=== PATIENT | female | born 1935 | race Caucasian/White ===

== ENCOUNTER → 2017-02-20 | Outpatient (REF) | payer MEDICARE, OTHER ==
[~2017-02-20] MED LIST: /MELO7TA PO; ACET50TA PO; ATARAX PO; BACITAB PO; CALCTAB68 PO; CARA1TAB6 PO; CIPR-249 PO; ENTO3CAP5 PO; FISH1200 PO; FLAG500T PO; GLUC1500 PO; LOSA100T PO; LUTE6TAB2 PO; MULTIVITAMIN PO; PROAAER10 IN; PROT1TAB2 PO; PROTPAK PO; QUES4POW PO; VITA200015 PO
[2017-02-20 12:39] LABS: MEAN CORPUSCULAR HEMOGLOBIN 32.4 pg (27.0-33.0); MEAN CORPUSCULAR HGB CONC 33.1 g/dl (32.0-36.5); RED CELL DISTRIBUTION WIDTH 12.7 % (11.5-14.5); WHITE BLOOD COUNT 4.6 K/mm3 (4.0-10.0)
[2017-02-20 13:01] LABS: ANION GAP 8 MEQ/L (8-16); BLOOD UREA NITROGEN 24 MG/DL (7-18); CALCIUM LEVEL 9.3 MG/DL (8.8-10.2); CARBON DIOXIDE LEVEL 29 MEQ/L (21-32); CHLORIDE LEVEL 105 MEQ/L (98-107); CREATININE FOR GFR 0.78 MG/DL (0.55-1.02); GLOMERULAR FILTRATION RATE > 60.0 (>39); GLUCOSE, FASTING 91 MG/DL (83-110); POTASSIUM SERUM 3.7 MEQ/L (3.5-5.1); SODIUM LEVEL 142 MEQ/L (136-145)
== END ==
LOC: M SFHCADAM 07:50
PROVIDERS: ATTEND Urology
DX: Z90.5 Acquired absence of kidney (principal)

== ENCOUNTER → 2017-03-02 | Outpatient (CLI) | payer MEDICARE, OTHER ==
[~2017-03-02] MED LIST changes: +ISOVUE-370 76% 100ML VIAL (Q9967) As Ordered ONE
--- NOTE | 2017-03-02 11:58 | REP ---
REASON: History of renal neoplasm. COMPARISON: Multiple, the latest 01/03/2014. CONTRAST: 100 mL Isovue 370. The precontrast enhanced portion of the examination shows the hepatic and splenic densities to be within normal limits. There are surgical clips in the gallbladder fossa from previous cholecystectomy, status quo. There are no nephroliths. Contrast enhanced portion of the examination shows stable cyst in the lateral segment of the left lobe of the liver. There are no enhancing hepatic lesions. The spleen, pancreas, adrenal glands, and kidneys are unchanged. Note is again made of stable pancreatic cysts and an unchanged 2.5 cm sized left renal lesion. The abdominal aorta and para-aortic regions are within normal limits. There is no free fluid or free air in the abdomen. The bowel loops and their mesenteries are within normal limits. CT PELVIS: There is no free fluid or free air. There is no mass or adenopathy. The bowel loops and their mesenteries are within normal limits. Bone window technique throughout the exam shows no significant change in the osseous structures. IMPRESSION: Stable CT examination of the abdomen and pelvis with findings as described above. Signed by Yoseph Vera DO 03/02/2017 01:57 P
== END ==
LOC: M RAD 10:25
PROVIDERS: ATTEND Urology
DX: Z90.5 Acquired absence of kidney (principal)
CPT/HCPCS: 74178; Q9967

== ENCOUNTER → 2017-06-25 | Outpatient (REF) | payer MEDICARE, OTHER ==
[~2017-06-25] MED LIST changes: -ISOVUE-370 76% 100ML VIAL (Q9967) As Ordered ONE
== END ==
LOC: M LABDRWAD 12:14
PROVIDERS: ATTEND Internal Medicine Cardiovascular Disease
DX: E78.2 Mixed hyperlipidemia (principal); I10 Essential (primary) hypertension; I35.0 Nonrheumatic aortic (valve) stenosis

== ENCOUNTER → 2017-09-20 | Outpatient (REF) | payer MEDICARE, OTHER ==
[2017-09-20 12:45] LABS: HEMATOCRIT 35.9 % (36.0-47.0); HEMOGLOBIN 11.6 g/dl (12.0-16.0); MEAN CORPUSCULAR HEMOGLOBIN 31.7 pg (27.0-33.0); MEAN CORPUSCULAR HGB CONC 32.3 g/dl (32.0-36.5); MEAN CORPUSCULAR VOLUME 98.1 fl (80.0-96.0); PLATELET COUNT, AUTOMATED 147 10^3/uL (150-450); RED BLOOD COUNT 3.66 10^6/uL (4.00-5.40); WHITE BLOOD COUNT 3.7 10^3/uL (4.0-10.0)
[2017-09-20 12:47] LABS: APPEARANCE, URINE CLEAR (CLEAR); BACTERIA, URINE AUTO NEGATIVE (NEGATIVE); BILIRUBIN, URINE AUTO NEGATIVE (NEGATIVE); BLOOD, URINE BLOOD NEGATIVE (NEGATIVE); COLOR, URINE YELLOW (YELLOW); GLUCOSE, URINE (UA) AUTO NEGATIVE (NEGATIVE); KETONE, URINE AUTO NEGATIVE (NEGATIVE); LEUKOCYTE ESTERASE, URINE AUTO NEGATIVE (NEGATIVE); NITRITE, URINE AUTO NEGATIVE (NEGATIVE); PROTEIN, URINE AUTO NEGATIVE (NEGATIVE); RBC, URINE AUTO 0 /HPF (0-3); SPECIFIC GRAVITY URINE AUTO 1.008 (1.002-1.035); SQUAMOUS EPITHELIAL CELL UR AU 0 /HPF (0-6); UROBILINOGEN, URINE AUTO 0.2 mg/dL (0.0-2.0); WBC, URINE AUTO 0 /HPF (0-3)
[2017-09-20 12:57] LABS: ANION GAP 6 MEQ/L (8-16); BLOOD UREA NITROGEN 24 MG/DL (7-18); CALCIUM LEVEL 9.2 MG/DL (8.8-10.2); CARBON DIOXIDE LEVEL 31 MEQ/L (21-32); CHLORIDE LEVEL 104 MEQ/L (98-107); CREATININE FOR GFR 0.71 MG/DL (0.55-1.30); GLOMERULAR FILTRATION RATE > 60.0 (>39); GLUCOSE, FASTING 91 MG/DL (70-100); SODIUM LEVEL 141 MEQ/L (136-145)
== END ==
LOC: M SFHCADAM 10:28
DX: Z85.528 Personal history of other malignant neoplasm of kidney (principal); Z79.899 Other long term (current) drug therapy
CPT/HCPCS: 80048

== ENCOUNTER → 2017-11-09 | Outpatient (REF) | payer MEDICARE, OTHER ==
[2017-11-09 13:50] LABS: FERRITIN 157 NG/ML (8-252); IRON (FE) 85 UG/DL (50-170); PERCENT SATURATION 27.2 % (13.2-45.0); TOTAL IRON BINDING CAPACITY 312 UG/DL (250-450)
[2017-11-09 14:14] LABS: VITAMIN B12 LEVEL 275 PG/ML (247-911)
== END ==
LOC: M LAB REF 12:49
DX: D64.9 Anemia, unspecified (principal)
CPT/HCPCS: 83550

== ENCOUNTER → 2018-03-27 | Outpatient (REF) | payer MEDICARE, OTHER ==
[2018-03-27 12:56] LABS: HEMATOCRIT 36.8 % (36.0-47.0); HEMOGLOBIN 12.1 g/dl (12.0-15.5); MEAN CORPUSCULAR HEMOGLOBIN 32.3 pg (27.0-33.0); MEAN CORPUSCULAR HGB CONC 32.9 g/dl (32.0-36.5); MEAN CORPUSCULAR VOLUME 98.1 fl (80.0-96.0); PLATELET COUNT, AUTOMATED 175 10^3/uL (150-450); RED BLOOD COUNT 3.75 10^6/uL (4.00-5.40); RED CELL DISTRIBUTION WIDTH 12.9 % (11.5-14.5); WHITE BLOOD COUNT 5.3 10^3/uL (4.0-10.0)
[2018-03-27 14:40] LABS: ANION GAP 9 MEQ/L (8-16); BLOOD UREA NITROGEN 23 MG/DL (7-18); CALCIUM LEVEL 9.4 MG/DL (8.8-10.2); CARBON DIOXIDE LEVEL 27 MEQ/L (21-32); CHLORIDE LEVEL 106 MEQ/L (98-107); CREATININE FOR GFR 0.73 MG/DL (0.55-1.30); GLOMERULAR FILTRATION RATE > 60.0 (>32); GLUCOSE, FASTING 85 MG/DL (70-100); POTASSIUM SERUM 4.6 MEQ/L (3.5-5.1); SODIUM LEVEL 142 MEQ/L (136-145)
== END ==
LOC: M SFHCADAM 08:29
DX: D30.02 Benign neoplasm of left kidney (principal)

== ENCOUNTER → 2018-03-27 | Outpatient (CLI) | payer MEDICARE, OTHER | LOC: M ADAMS 08:31 | DX: D30.02 Benign neoplasm of left kidney (principal) | CPT/HCPCS: 80048 ==

== ENCOUNTER → 2019-02-04 | Outpatient (REF) | payer MEDICARE, OTHER ==
[~2019-02-04] MED LIST changes: -/MELO7TA PO; -ACET50TA PO; +MAPA500T17 PO; +MOBI4TAB PO
[2019-02-04 14:10] LABS: HEMATOCRIT 39.2 % (36.0-47.0); HEMOGLOBIN 12.7 g/dl (12.0-15.5); MEAN CORPUSCULAR HEMOGLOBIN 33.2 pg (27.0-33.0); MEAN CORPUSCULAR HGB CONC 32.4 g/dl (32.0-36.5); MEAN CORPUSCULAR VOLUME 102.3 fl (80.0-96.0); PLATELET COUNT, AUTOMATED 174 10^3/uL (150-450); RED BLOOD COUNT 3.83 10^6/uL (4.00-5.40); WHITE BLOOD COUNT 5.3 10^3/uL (4.0-10.0)
[2019-02-04 14:45] LABS: BLOOD UREA NITROGEN 29 MG/DL (7-18); CALCIUM LEVEL 9.1 MG/DL (8.8-10.2); CARBON DIOXIDE LEVEL 30 MEQ/L (21-32); CHLORIDE LEVEL 104 MEQ/L (98-107); CREATININE FOR GFR 0.82 MG/DL (0.55-1.30); GLOMERULAR FILTRATION RATE > 60.0 (>32); GLUCOSE, FASTING 91 MG/DL (70-100); POTASSIUM SERUM 4.3 MEQ/L (3.5-5.1); SODIUM LEVEL 140 MEQ/L (136-145)
== END ==
LOC: M LABDRWAD 13:15
PROVIDERS: ATTEND Physician Assistant Medical
DX: I34.0 Nonrheumatic mitral (valve) insufficiency (principal)

== ENCOUNTER → 2019-08-03 | Outpatient (CLI) | payer MEDICARE, OTHER ==
--- NOTE | 2019-08-05 08:01 | SLEEPCENT ---
DATE OF STUDY: 08/03/2019 ORDERED BY: Dr. Musa Nocturnal polysomnography was performed for evaluation of sleep physiology in this patient with excessive somnolence and snoring. 8 hours and 44 minutes of data were reviewed. There were 416.5 minutes of sleep identified. Sleep latency was prolonged at 39.5 minutes. Rapid eye movement (REM) latency was prolonged at 235 minutes. Sleep architecture showed fragmentation and poor progression. Overall sleep efficiency was 80.3%, but REM time was significantly reduced. The electrocardiogram showed a sinus rhythm with an average heart rate of 60 beats per minute. Electroencephalogram (EEG) showed normal waveforms for awake and sleep. There were 199 respiratory events identified of 10 seconds in duration or greater for an apnea-hypopnea index of 28.7. The events were primarily obstructive, not exclusive to sleep stage nor body posture. Arousals from respiratory events occurred 4.5 times per hour and oxygen desaturations were seen into the 70s. There was minimal activity in the limb leads and remaining measures of sleep physiology were normal. IMPRESSION: Obstructive sleep apnea syndrome (G47.33). Apnea-hypopnea index 28.7. RECOMMENDATION: The patient should be encouraged to return to the sleep disorder center for institution of pressure therapy. In the interim, alcohol and sedative avoidance should be practiced and caution exercised during the operation of motor vehicles.
== END ==
LOC: M SLEEP 20:00
PROVIDERS: ATTEND Internal Medicine Pulmonary Disease
DX: R06.83 Snoring (principal)

== ENCOUNTER → 2019-08-29 | Outpatient (CLI) | payer MEDICARE, OTHER ==
--- NOTE | 2019-09-02 07:32 | SLEEPCENT ---
DATE OF STUDY: 08/29/2019 ORDERED BY: Dr. Musa Nocturnal polysomnography was performed for the titration of pressure therapy in this patient with obstructive sleep apnea syndrome. Apnea-hypopnea index 28.7. For testing a ResMed AirFit F30 full face mask was used, 4 cm of water pressure were initially applied circuit and the lights were extinguished. 7 hours and 52 minutes of data were reviewed. There were 413 minutes of sleep identified. Sleep latency was short at 4.5 minutes. Rapid eye movement (REM) latency was normal at 97 minutes. Sleep architecture improved with optimal pressure therapy. There were four rapid eye movement (REM) cycles noted. Overall sleep efficiency 88.4%. The patient's electrocardiogram showed a sinus rhythm with an average heart rate of 60 beats per minute. Occasional PVCs were noted. EEG showed normal waveforms for awake and sleep. Respiratory events were best palliated with CPAP at a pressure of +8. IMPRESSION: Obstructive sleep apnea syndrome (G47.33). RECOMMENDATION: Nightly use of pressure therapy, 8 cm of water. cc: Binu Michel MD
== END ==
LOC: M SLEEP 19:33
PROVIDERS: ATTEND Internal Medicine Pulmonary Disease
DX: G47.33 Obstructive sleep apnea (adult) (pediatric) (principal)

== ENCOUNTER 2022-02-04 16:44 | Emergency (ER) | payer MEDICARE, OTHER ==
[2022-02-04] MEDS ORDERED: ONDANSETRON 4MG ORAL DISINTEGRATING TAB PO ONE ×2 (18:30→22:35)
[2022-02-04] MEDS ORDERED: DERMABOND TOPICAL SKIN ADHESIVE TOP ONE (18:30)
[2022-02-04] MEDS ORDERED: ACETAMINOPHEN 325 MG TAB PO ONE (18:30)
[2022-02-04] MEDS: LIDOCAINE 1% SDV 30ML VIAL SC SCH (18:52)
[2022-02-04] MEDS ORDERED: MORPHINE 2 MG/ML 1ML VIAL IV ONE (20:25)
[2022-02-04] MEDS ORDERED: ONDANSETRON 4MG 2ML VIAL IV ONE (21:30)
[2022-02-04 22:01] VITALS: BP 180/72
[2022-02-04] MEDS ORDERED: ONDA4TAB6 PO (22:35)
[2022-02-04] MEDS ORDERED: HYDR-3713 PO (22:37)
== END 2022-02-04 23:04 | disposition home or self-care (01) ==
LOC: EDBD 16:44 → M ED 16:44
DX: S01.511A Laceration without foreign body of lip, initial encounter (principal); S01.412A Laceration without foreign body of left cheek and temporomandibular area, initial encounter; S00.83XA Contusion of other part of head, initial encounter; S82.042A Displaced comminuted fracture of left patella, initial encounter for closed fracture; W10.1XXA Fall (on)(from) sidewalk curb, initial encounter; I10 Essential (primary) hypertension; Z88.6 Allergy status to analgesic agent; Z79.01 Long term (current) use of anticoagulants; Z79.51 Long term (current) use of inhaled steroids; Z79.899 Other long term (current) drug therapy; Y93.9 Activity, unspecified; Y92.9 Unspecified place or not applicable; Y99.9 Unspecified external cause status
CPT/HCPCS: 12013; 70450; 70486; 72125; 73130; 73564; 73700; 96374; 96375; 99285; J2270; J2405

== ENCOUNTER 2022-06-29 12:42 | Inpatient (IN) | payer MEDICARE, OTHER ==
[~2022-06-29] VITALS: Ht 160 cm; Wt 62.4 kg
[2022-06-29] VITALS (7 sets, daily range): BP systolic 112–148; BP diastolic 65–71
[~2022-06-29 12:42] MED LIST changes: +HYDR-3713 PO; +ONDA4TAB6 PO
[2022-06-29] MEDS ORDERED: LEVO50TA5 PO (13:08)
[2022-06-29] MEDS ORDERED: ELIQ5TAB PO (13:08)
[2022-06-29] MEDS ORDERED: SIMV10TA21 PO (13:08)
[2022-06-29] MEDS ORDERED: AMLO1TAB24 PO (13:08)
[2022-06-29] MEDS ORDERED: VALS1TAB68 PO (13:08)
[2022-06-29 14:25] LABS: BASO % 0.3 % (0.0-1.0); EOS # 0.6 10^3/uL (0.0-0.5); EOS % 9.9 % (0.0-3.0); HEMATOCRIT 37.6 % (36.0-47.0); LYMPH # 1.6 10^3/uL (1.5-5.0); LYMPH % 24.4 % (24.0-44.0); MEAN CORPUSCULAR HEMOGLOBIN 31.3 pg (27.0-33.0); MEAN CORPUSCULAR HGB CONC 31.9 g/dl (32.0-36.5); MEAN CORPUSCULAR VOLUME 97.9 fl (80.0-96.0); MONO # 0.6 10^3/uL (0.0-0.8); MONO % 9.3 % (2.0-8.0); NEUTROPHILS # 3.6 10^3/uL (1.5-8.5); NEUTROPHILS % 55.8 % (36.0-66.0); PLATELET COUNT, AUTOMATED 200 10^3/uL (150-450); RED BLOOD COUNT 3.84 10^6/uL (4.00-5.40); WHITE BLOOD COUNT 6.5 10^3/uL (4.0-10.0)
[2022-06-29 14:37] LABS: INR 1.22; PROTHROMBIN TIME 15.6 SECONDS (12.5-14.5)
[2022-06-29 14:38] LABS: PARTIAL THROMBOPLASTIN TIME 30.8 SECONDS (24.8-34.2)
[2022-06-29 14:47] LABS: CK-MB VALUE MASS < 1.0 NG/ML (<3.6)
[2022-06-29 14:53] LABS: BLOOD UREA NITROGEN 27 MG/DL (9-23); CALCIUM LEVEL 9.5 MG/DL (8.3-10.6); CARBON DIOXIDE LEVEL 28 MMOL/L (20-31); CHLORIDE LEVEL 104 MMOL/L (98-107); CPK CREATINE PHOSPHOKINASE 68 U/L (34-145); CREATININE FOR GFR 0.69 MG/DL (0.55-1.30); GLOMERULAR FILTRATION RATE > 60.0 (>32); GLUCOSE, FASTING 89 MG/DL (74-106); MB/CK RELATIVE INDEX 1.47 (< OR =4); POTASSIUM SERUM 3.8 MMOL/L (3.5-5.1); SODIUM LEVEL 142 MMOL/L (136-145)
[2022-06-29 15:22] LABS: RSV AMPLIFICATION NEGATIVE (NEGATIVE)
[2022-06-29] MEDS ORDERED: BENZ200C70 PO (16:31)
[2022-06-29] MEDS ORDERED: D3 S1CAP3 PO (16:31)
[2022-06-29] MEDS ORDERED: HOME MED LIST COMPLETE! XX SCH (16:35)
[2022-06-29] MEDS ORDERED: BENZONATATE 100MG CAPSULE PO PRN (17:05)
[2022-06-29 17:16] LABS: MAGNESIUM LEVEL 1.8 MG/DL (1.8-2.4)
[2022-06-29 19:56] LABS: CHOLESTEROL LEVEL 172 MG/DL (<200); CHOLESTEROL RISK RATIO 2.31 (<5); HDL CHOLESTEROL 74.3 MG/DL (>40); LDL CHOLESTEROL 75.7 MG/DL (<100); NON-HDL-C 98 MG/DL; TRIGLYCERIDES LEVEL 110 MG/DL (<150)
[2022-06-29 20:02] LABS: HEMOGLOBIN A1c 4.9 % (4.0-6.0)
[2022-06-29] MEDS: APIXABAN 5 MG TAB (ELIQUIS) PO SCH (20:51)
[2022-06-29 20:58] LABS: VITAMIN B12 LEVEL 263 PG/ML (211-911)
[2022-06-29] MEDS ORDERED: SIMVASTATIN 10 MG TAB PO SCH (21:00)
[2022-06-29 21:10] LABS: FOLATE 11.26 NG/ML (>5.4)
[2022-06-29] MEDS ORDERED: ACETAMINOPHEN TAB 650MG DOSE (2X325MG) PO PRN (21:10)
[2022-06-29 21:14] LABS: THYROID STIMULATING HORMONE 2.684 uIU/ML (0.55-4.78)
[2022-06-30] VITALS: BP 111/54
[2022-06-30 04:00] VITALS: BP 118/56
[2022-06-30 04:15] LABS: BASO % 0.6 % (0.0-1.0); EOS # 0.6 10^3/uL (0.0-0.5); EOS % 11.1 % (0.0-3.0); HEMOGLOBIN 11.1 g/dl (12.0-15.5); LYMPH # 1.7 10^3/uL (1.5-5.0); LYMPH % 31.2 % (24.0-44.0); MEAN CORPUSCULAR HEMOGLOBIN 31.5 pg (27.0-33.0); MEAN CORPUSCULAR HGB CONC 32.6 g/dl (32.0-36.5); MEAN CORPUSCULAR VOLUME 96.6 fl (80.0-96.0); MONO # 0.4 10^3/uL (0.0-0.8); MONO % 7.2 % (2.0-8.0); NEUTROPHILS # 2.7 10^3/uL (1.5-8.5); NEUTROPHILS % 49.7 % (36.0-66.0); PLATELET COUNT, AUTOMATED 175 10^3/uL (150-450); RED BLOOD COUNT 3.52 10^6/uL (4.00-5.40); WHITE BLOOD COUNT 5.4 10^3/uL (4.0-10.0)
[2022-06-30 04:41] LABS: MAGNESIUM LEVEL 1.9 MG/DL (1.8-2.4)
[2022-06-30 04:43] LABS: BLOOD UREA NITROGEN 26 MG/DL (9-23); CALCIUM LEVEL 8.9 MG/DL (8.3-10.6); CARBON DIOXIDE LEVEL 27 MMOL/L (20-31); CHLORIDE LEVEL 106 MMOL/L (98-107); CREATININE FOR GFR 0.68 MG/DL (0.55-1.30); GLOMERULAR FILTRATION RATE > 60.0 (>32); GLUCOSE, FASTING 101 MG/DL (74-106); POTASSIUM SERUM 3.8 MMOL/L (3.5-5.1); SODIUM LEVEL 140 MMOL/L (136-145)
[2022-06-30] MEDS ORDERED: LEVOTHYROXINE 50MCG TABLET (0.05MG) PO SCH (06:00)
[2022-06-30 08:00] VITALS: BP 139/91
[2022-06-30] MEDS: APIXABAN 5 MG TAB (ELIQUIS) PO SCH (08:08)
[2022-06-30] MEDS ORDERED: amLODIPine 5 MG TAB PO SCH (09:00)
[2022-06-30] MEDS ORDERED: VALSARTAN 80 MG TAB (DIOVAN) PO SCH (09:00)
== END 2022-06-30 12:01 | disposition home or self-care (01) | DRG 69 ==
LOC: M ED 12:42 → M ED INP 15:49 → ENRESERV 17:12 → M ICU 20:31
PROVIDERS: ADMIT Internal Medicine; ATTEND Internal Medicine
DX: G45.9 Transient cerebral ischemic attack, unspecified (principal); I48.91 Unspecified atrial fibrillation; G47.33 Obstructive sleep apnea (adult) (pediatric); I10 Essential (primary) hypertension; Z88.8 Allergy status to other drugs, medicaments and biological substances; Z79.899 Other long term (current) drug therapy; E03.9 Hypothyroidism, unspecified

== ENCOUNTER → 2024-10-22 | Outpatient (CLI) | payer MEDICARE, OTHER ==
[~2024-10-22] MED LIST changes: +AMLO1TAB24 PO; +BENZ200C70 PO; +D3 S1CAP3 PO; +ELIQ5TAB PO; +LEVO50TA5 PO; +ONDA-282 PO; -ONDA4TAB6 PO; +SIMV10TA21 PO; +VALS1TAB68 PO
== END ==
LOC: M PLAIMG 11:53
PROVIDERS: ATTEND Internal Medicine
DX: R06.00 Dyspnea, unspecified (principal)

== ENCOUNTER 2024-10-30 15:16 | Inpatient (IN) | payer MEDICARE, OTHER ==
[~2024-10-30] VITALS: Ht 162.6 cm; Wt 71.0 kg
[2024-10-30] MEDS ORDERED: LEVO1TAB40 PO (15:27)
[2024-10-30 16:53] LABS: BASO % 0.2 % (0.0-1.0); EOS # 0.4 10^3/uL (0.0-0.5); EOS % 8.4 % (0.0-3.0); HEMATOCRIT 37.6 % (36.0-47.0); HEMOGLOBIN 12.4 g/dl (12.0-15.5); LYMPH # 1.6 10^3/uL (1.5-5.0); LYMPH % 30.6 % (24.0-44.0); MEAN CORPUSCULAR HEMOGLOBIN 31.2 pg (27.0-33.0); MEAN CORPUSCULAR VOLUME 94.7 fl (80.0-96.0); MONO # 0.5 10^3/uL (0.0-0.8); NEUTROPHILS # 2.6 10^3/uL (1.5-8.5); NEUTROPHILS % 51.6 % (36.0-66.0); PLATELET COUNT, AUTOMATED 181 10^3/uL (150-450); RED BLOOD COUNT 3.97 10^6/uL (4.00-5.40); WHITE BLOOD COUNT 5.1 10^3/uL (4.0-10.0)
[2024-10-30 17:21] LABS: BLOOD UREA NITROGEN 15 MG/DL (9-23); CALCIUM LEVEL 9.3 MG/DL (8.3-10.6); CARBON DIOXIDE LEVEL 27 MMOL/L (20-31); CHLORIDE LEVEL 106 MMOL/L (98-107); CREATININE FOR GFR 0.85 MG/DL (0.55-1.30); GLOMERULAR FILTRATION RATE > 60.0 (>32); GLUCOSE, FASTING 84 MG/DL (74-106); POTASSIUM SERUM 4.1 MMOL/L (3.5-5.1); SODIUM LEVEL 142 MMOL/L (136-145)
[2024-10-30 17:23] LABS: THYROID STIMULATING HORMONE 5.314 uIU/ML (0.55-4.78)
[2024-10-30] MEDS ORDERED: METOPROLOL TART 25 MG TABLET PO ONE (17:25)
[2024-10-30] MEDS: METOPROLOL 5 MG/5 ML VIAL IV SCH (17:30)
[2024-10-30] MEDS: DIGOXIN INJ 0.5 MG/2 ML AMP IV STA ×2 (17:50→19:31)
[2024-10-30] MEDS ORDERED: HOME MED LIST COMPLETE! XX SCH (22:50)
[2024-10-30] MEDS ORDERED: ACETAMINOPHEN 325 MG TAB PO PRN (22:55)
[2024-10-30] MEDS ORDERED: MAALOX 30 ML SUSP *UDC PO PRN (22:55)
[2024-10-30] MEDS: METOPROLOL TART 25 MG TABLET PO SCH (23:38)
[2024-10-30] MEDS: APIXABAN 5 MG TAB (ELIQUIS) PO SCH (23:47)
[2024-10-30] MEDS: SIMVASTATIN 10 MG TAB PO SCH (23:47)
[2024-10-31] VITALS: BP 133/87; TEMP 97.4; O2SAT 96
[2024-10-31] MEDS: PANTOPRAZOLE 40MG TAB (PROTONIX) PO SCH (01:31)
[2024-10-31 04:03] VITALS: BP 122/91; TEMP 97.4; O2SAT 96
[2024-10-31] MEDS: LEVOTHYROXINE 50MCG TABLET (0.05MG) PO SCH (05:36)
[2024-10-31 06:51] LABS: BASO % 0.5 % (0.0-1.0); EOS # 0.5 10^3/uL (0.0-0.5); EOS % 8.4 % (0.0-3.0); HEMATOCRIT 38.9 % (36.0-47.0); HEMOGLOBIN 12.7 g/dl (12.0-15.5); LYMPH # 1.5 10^3/uL (1.5-5.0); LYMPH % 27.5 % (24.0-44.0); MEAN CORPUSCULAR HGB CONC 32.6 g/dl (32.0-36.5); MEAN CORPUSCULAR VOLUME 94.9 fl (80.0-96.0); MONO # 0.6 10^3/uL (0.0-0.8); MONO % 10.6 % (2.0-8.0); NEUTROPHILS # 2.9 10^3/uL (1.5-8.5); NEUTROPHILS % 52.8 % (36.0-66.0); PLATELET COUNT, AUTOMATED 173 10^3/uL (150-450); WHITE BLOOD COUNT 5.5 10^3/uL (4.0-10.0)
[2024-10-31 07:10] LABS: BLOOD UREA NITROGEN 11 MG/DL (9-23); CALCIUM LEVEL 9.1 MG/DL (8.3-10.6); CARBON DIOXIDE LEVEL 25 MMOL/L (20-31); CHLORIDE LEVEL 106 MMOL/L (98-107); CREATININE FOR GFR 0.75 MG/DL (0.55-1.30); DIGOXIN LEVEL 1.1 NG/ML (0.8-2.0); GLOMERULAR FILTRATION RATE > 60.0 (>32); GLUCOSE, FASTING 91 MG/DL (74-106); POTASSIUM SERUM 3.9 MMOL/L (3.5-5.1); SODIUM LEVEL 140 MMOL/L (136-145)
[2024-10-31 07:13] LABS: FREE T4 1.26 NG/DL (0.89-1.76)
[2024-10-31 07:34] VITALS: BP 133/68; TEMP 97.6; O2SAT 97
[2024-10-31] MEDS ORDERED: FUROSEMIDE 20MG/2ML VIAL IV SCH (09:00)
[2024-10-31] MEDS: DOCUSATE SODIUM 100MG CAPSULE PO SCH (09:00)
[2024-10-31] MEDS ORDERED: DIGOXIN 0.125 MG TAB PO SCH (09:00)
[2024-10-31] MEDS ORDERED: FUROSEMIDE 40MG/4ML VIAL IV SCH (09:00)
[2024-10-31] MEDS: metOLazone 2.5 MG TAB PO ONE (09:26)
[2024-10-31] MEDS: MIDODRINE 5 MG TAB PO ONE (09:26)
[2024-10-31] MEDS: FUROSEMIDE 20MG/2ML VIAL IV ONE (10:05)
[2024-10-31 10:30] VITALS: BP 134/75; TEMP 97.3; O2SAT 98
[2024-10-31] MEDS: METOPROLOL SUCC (TopROL XL) 50MG **XL** TAB PO ONE (11:21)
[2024-10-31] MEDS: MIDODRINE 5 MG TAB PO SCH (12:14)
[2024-10-31] MEDS: DIGOXIN INJ 0.5 MG/2 ML AMP IV ONE (17:12)
[2024-10-31 20:00] VITALS: BP 123/67; TEMP 97.2; O2SAT 96
[2024-10-31] MEDS: METOPROLOL SUCC (TopROL XL) 50MG **XL** TAB PO SCH (20:27)
[2024-11-01 04:00] VITALS: BP 120/67; TEMP 97; O2SAT 98
[2024-11-01 06:48] LABS: BASO % 0.4 % (0.0-1.0); EOS # 0.5 10^3/uL (0.0-0.5); EOS % 6.9 % (0.0-3.0); HEMATOCRIT 45.4 % (36.0-47.0); LYMPH % 29.8 % (24.0-44.0); MEAN CORPUSCULAR HGB CONC 32.6 g/dl (32.0-36.5); MEAN CORPUSCULAR VOLUME 95.2 fl (80.0-96.0); MONO # 0.5 10^3/uL (0.0-0.8); MONO % 7.2 % (2.0-8.0); NEUTROPHILS # 3.7 10^3/uL (1.5-8.5); NEUTROPHILS % 55.1 % (36.0-66.0); PLATELET COUNT, AUTOMATED 248 10^3/uL (150-450); RED BLOOD COUNT 4.77 10^6/uL (4.00-5.40); WHITE BLOOD COUNT 6.7 10^3/uL (4.0-10.0)
[2024-11-01 06:50] LABS: HEMOGLOBIN 14.8 g/dl (12.0-15.5)
[2024-11-01 06:59] LABS: CALCIUM LEVEL 9.6 MG/DL (8.3-10.6); CREATININE FOR GFR 0.93 MG/DL (0.55-1.30); GLOMERULAR FILTRATION RATE 59.5 (>32)
[2024-11-01 08:24] VITALS: BP 112/65
[2024-11-01] MEDS ORDERED: MIDO5TA PO (08:40)
[2024-11-01] MEDS ORDERED: METO1TAB7 PO (08:40)
[2024-11-01] MEDS ORDERED: TALK1KIT MC (08:41)
[2024-11-01 09:00] VITALS: BP 111/65
[2024-11-01] MEDS ORDERED: APIXABAN 2.5 MG TAB (ELIQUIS) PO SCH (09:00)
[2024-11-01] MEDS ORDERED: FARX1TAB3 PO (16:03)
== END 2024-11-01 10:40 | disposition home or self-care (01) | DRG 291 ==
LOC: M ED 15:16 → M ED INP 22:53 → M PCU 23:54 → M MSPAV 10-31 10:18
PROVIDERS: ADMIT Internal Medicine Nephrology; ATTEND General Practice
PROC: B246ZZZ Ultrasonography of Right and Left Heart (ICD-10-PCS; principal; 2024-11-01)
DX: I11.0 Hypertensive heart disease with heart failure (principal); I50.43 Acute on chronic combined systolic (congestive) and diastolic (congestive) heart failure; I48.20 Chronic atrial fibrillation, unspecified; J90 Pleural effusion, not elsewhere classified; E78.5 Hyperlipidemia, unspecified; G47.33 Obstructive sleep apnea (adult) (pediatric); E03.9 Hypothyroidism, unspecified; I08.0 Rheumatic disorders of both mitral and aortic valves; I27.20 Pulmonary hypertension, unspecified; M19.90 Unspecified osteoarthritis, unspecified site; E86.0 Dehydration; Z86.73 Personal history of transient ischemic attack (TIA), and cerebral infarction without residual deficits; Z90.49 Acquired absence of other specified parts of digestive tract; Z90.79 Acquired absence of other genital organ(s); Z98.41 Cataract extraction status, right eye; Z98.42 Cataract extraction status, left eye; Z85.828 Personal history of other malignant neoplasm of skin; Z90.5 Acquired absence of kidney; Z79.01 Long term (current) use of anticoagulants; Z79.890 Hormone replacement therapy; Z79.899 Other long term (current) drug therapy; Z88.8 Allergy status to other drugs, medicaments and biological substances

== ENCOUNTER → 2024-12-02 | Outpatient (REF) | payer MEDICARE, OTHER ==
[~2024-12-02] MED LIST changes: +FARX1TAB3 PO; +LEVO1TAB40 PO; +METO1TAB7 PO; +MIDO5TA PO; +TALK1KIT MC
[2024-12-02 15:35] LABS: CREATININE FOR GFR 0.77 MG/DL (0.55-1.30); GLOMERULAR FILTRATION RATE 74.6 (>32); POTASSIUM SERUM 4.5 MMOL/L (3.5-5.1)
== END ==
LOC: M LABDRWAD 15:15
PROVIDERS: ATTEND Physician Assistant Medical
DX: I48.0 Paroxysmal atrial fibrillation (principal)

== ENCOUNTER 2025-02-24 10:37 | Emergency (ER) | payer MEDICARE, OTHER ==
[~2025-02-24] VITALS: Ht 162.6 cm; Wt 65.5 kg
[2025-02-24] MEDS ORDERED: ISOVUE-370 76% 100 ML VIAL As Ordered ONE (11:01)
[2025-02-24 11:02] LABS: BASO # 0.0 10^3/uL (0.0-0.2); BASO % 0.3 % (0.0-1.0); EOS # 0.2 10^3/uL (0.0-0.5); EOS % 1.9 % (0.0-3.0); LYMPH # 0.9 10^3/uL (1.5-5.0); LYMPH % 10.7 % (24.0-44.0); MONO # 0.6 10^3/uL (0.0-0.8); MONO % 8.0 % (2.0-8.0); NEUTROPHILS # 6.3 10^3/uL (1.5-8.5); NEUTROPHILS % 78.7 % (36.0-66.0); PLATELET COUNT, AUTOMATED 207 10^3/uL (150-450)
[2025-02-24 11:14] LABS: INR 1.35
[2025-02-24 11:36] LABS: DIGOXIN LEVEL 0.5 NG/ML (0.8-2.0)
[2025-02-24 11:37] LABS: ALT/SGPT 17 U/L (7.0-40); AST/SGOT 21 U/L (<34); CALCIUM LEVEL 9.1 MG/DL (8.3-10.6); CARBON DIOXIDE LEVEL 23 MMOL/L (20-31); CHLORIDE LEVEL 102 MMOL/L (98-107); CK-MB VALUE MASS < 1.0 NG/ML (<3.6); CREATININE FOR GFR 0.60 MG/DL (0.55-1.30); GLOMERULAR FILTRATION RATE 86.8 (>32); POTASSIUM SERUM 4.0 MMOL/L (3.5-5.1); SODIUM LEVEL 141 MMOL/L (136-145)
[2025-02-24 11:40] LABS: FREE T4 1.14 NG/DL (0.89-1.76)
[2025-02-24] MEDS ORDERED: DIGO0.123 PO (11:44)
[2025-02-24] MEDS ORDERED: FARX1TAB3 PO (11:44)
[2025-02-24] MEDS ORDERED: METO1TAB87 PO (11:44)
[2025-02-24] MEDS ORDERED: MIDO5TA PO (11:44)
[2025-02-24] MEDS ORDERED: OMEP-173 PO (11:44)
[2025-02-24] MEDS ORDERED: LEVO75TA4 PO (11:44)
[2025-02-24] MEDS ORDERED: ACET-907 PO (11:44)
[2025-02-24] MEDS ORDERED: HOME MED LIST COMPLETE! XX SCH (11:45)
[2025-02-24 11:46] LABS: CPK CREATINE PHOSPHOKINASE 35 U/L (34-145)
[2025-02-24] MEDS: METOPROLOL 5 MG/5 ML VIAL IV STA (12:02)
[2025-02-24 12:51] LABS: CK-MB VALUE MASS < 1.0 NG/ML (<3.6)
[2025-02-24 12:53] LABS: CPK CREATINE PHOSPHOKINASE 32 U/L (34-145)
[2025-02-24 14:50] VITALS: BP 148/67
[2025-02-24] MEDS: METOPROLOL TART 25 MG TABLET PO ONE (14:50)
[2025-02-24 18:45] VITALS: BP 158/76; TEMP 97.3; O2SAT 98
== END 2025-02-24 19:26 | disposition home or self-care (01) ==
LOC: M ED 10:37 → EDBD 10:37 → M ED 19:26
DX: I48.91 Unspecified atrial fibrillation (principal); R29.810 Facial weakness; M25.531 Pain in right wrist; M18.11 Unilateral primary osteoarthritis of first carpometacarpal joint, right hand; M25.431 Effusion, right wrist; I45.10 Unspecified right bundle-branch block; J98.11 Atelectasis; I10 Essential (primary) hypertension; E78.5 Hyperlipidemia, unspecified; E03.9 Hypothyroidism, unspecified; G47.33 Obstructive sleep apnea (adult) (pediatric); Z86.79 Personal history of other diseases of the circulatory system; Z88.8 Allergy status to other drugs, medicaments and biological substances; Z79.01 Long term (current) use of anticoagulants; Z79.899 Other long term (current) drug therapy; Z79.1 Long term (current) use of non-steroidal anti-inflammatories (NSAID)
CPT/HCPCS: 70450; 70496; 70498; 70544; 70551; 71045; 71250; 73110; 80047; 80048; 80076; 80162; 82550; 82553; 84439; 84443; 84484; 85025; 85610; 85730; 93005; 93041; 94760; 96374; 99285; J0616; Q9967

== ENCOUNTER → 2025-04-21 | Outpatient (REF) | payer MEDICARE, OTHER ==
[~2025-04-21] MED LIST changes: +ACET-907 PO; +DIGO0.123 PO; +LEVO75TA4 PO; +METO1TAB87 PO; +OMEP-173 PO
== END ==
LOC: M LAB REF 12:13
PROVIDERS: ATTEND Internal Medicine
DX: I48.20 Chronic atrial fibrillation, unspecified (principal)

== ENCOUNTER → 2025-05-06 | Outpatient (REF) | payer MEDICARE, OTHER | LOC: M LAB REF 12:24 | PROVIDERS: ATTEND Internal Medicine | DX: I48.0 Paroxysmal atrial fibrillation (principal) ==

== ENCOUNTER → 2025-05-21 | Outpatient (CLI) | payer MEDICARE, OTHER ==
[2025-05-21 13:26] LABS: BASO # 0.0 10^3/uL (0.0-0.2); BASO % 0.5 % (0.0-1.0); EOS # 0.3 10^3/uL (0.0-0.5); EOS % 4.6 % (0.0-3.0); LYMPH # 1.4 10^3/uL (1.5-5.0); LYMPH % 24.3 % (24.0-44.0); MONO # 0.5 10^3/uL (0.0-0.8); MONO % 9.0 % (2.0-8.0); NEUTROPHILS # 3.6 10^3/uL (1.5-8.5); NEUTROPHILS % 61.3 % (36.0-66.0); PLATELET COUNT, AUTOMATED 181 10^3/uL (150-450)
[2025-05-21 13:45] LABS: CALCIUM LEVEL 9.0 MG/DL (8.3-10.6); CARBON DIOXIDE LEVEL 28.0 MMOL/L (20-31); CHLORIDE LEVEL 105.0 MMOL/L (98-107); CREATININE FOR GFR 0.75 MG/DL (0.55-1.30); GLOMERULAR FILTRATION RATE 77.0 (>32); POTASSIUM SERUM 4.2 MMOL/L (3.5-5.1); SODIUM LEVEL 143.0 MMOL/L (136-145)
== END ==
LOC: M LAB 12:39
PROVIDERS: ATTEND Internal Medicine Clinical Cardiac Electrophysiology
DX: I44.2 Atrioventricular block, complete (principal); I49.5 Sick sinus syndrome

== ENCOUNTER → 2025-07-20 | Outpatient (REF) | payer MEDICARE, OTHER | LOC: M LAB REF 17:29 | PROVIDERS: ATTEND Internal Medicine | DX: I48.0 Paroxysmal atrial fibrillation (principal) ==